=== PATIENT | male | born 1965 | race Caucasian/White ===

== ENCOUNTER 2020-01-26 09:30 | Outpatient (CLI) | payer OTHER, SELFPAY ==
[2020-01-26 09:47] LABS: Hematocrit 45.9 % (42.0-52.0); Hemoglobin 16.3 g/dL (14.0-18.0); Mean Corpuscular HGB Conc 35.5 g/dl (32-36); Mean Corpuscular Hemoglobin 32.9 pg (26-34); Mean Corpuscular Volume 92.5 fl (80-100); Mean Platelet Volume 9.4 fl (7.4-10.4); Platelet Count Result 260 k/mm3 (150-375); Red Blood Count 4.96 M/mm3 (4.6-6.20); Red Cell Distribution Width 12.5 % (11.5-14.5); White Blood Count 8.1 K/mm3 (4.5-10.0)
[2020-01-26 10:00] LABS: Alanine Aminotransferase 40 U/L (4-50); Albumin Level 4.6 g/dL (3.5-5.1); Alkaline Phosphatase 62 U/L (38-126); Anion Gap 5 mmol/L (8-16); Aspartate Amino Transferase 36 U/L (17-59); Bilirubin,Total 0.9 mg/dL (0.2-1.3); Blood Urea Nitrogen 13 mg/dL (9-20); Calcium 9.1 mg/dL (8.4-10.2); Carbon Dioxide 30 mmol/L (22-30); Chloride 105 mmol/L (98-107); Cholesterol 211 mg/dL (0-200); Estimated Glomerular Filt Rate > 60; Glucose 103 mg/dL (75-110); HDL Direct 41 mg/dL; Potassium 4.4 mmol/L (3.4-5.0); Sodium 140 mmol/L (137-145); Triglycerides 131 mg/dL (<150)
[2020-01-26 10:11] LABS: LDL Cholesterol Direct 139 mg/dL
[2020-01-26 10:45] LABS: Prostate Specific Antigen 0.9 ng/mL (< OR = 4.0)
== END 2020-01-26 09:31 | disposition home or self-care (01) ==
PROVIDERS: PCP Family Medicine; Visit Provider Family Medicine
DX: M10.9 Gout, unspecified (principal); E78.00 Pure hypercholesterolemia, unspecified; Z12.5 Encounter for screening for malignant neoplasm of prostate
CPT/HCPCS: 36415; 80053; 80061; 84153; 84443; 85027; G0103

== ENCOUNTER 2020-03-26 07:34 | Outpatient (CLI) | payer OTHER, SELFPAY ==
--- NOTE | 2020-05-14 15:35 | WPDHOMESLEEP ---
Sleep Study - Home Unattended Date of Study: 03/26/20 Ordering Provider: Homero Martinez MD Interpreting Physician: Yuni Sheth MD Home Sleep Study Type: Apnea Link Air Height: 1.78 m Weight: 87.09 kg Body Mass Index: 27.5 Neck Circumference (inches): 17 [place]: 7 Reason for Sleep Study Hypersomnia Sleep History Papa Garcia is a 54-year-old man who snores loudly at night and gasps for air. This started over 5 years ago. He wakes up during the night several times. His snoring often causes others to complain. He rarely awakens at night with heartburn, belching or coughing. He does not awaken from sleep feeling short of breath. He occasionally has trouble sleep with a cold. He he frequently has breathing problems at night observed by others. He rarely sweats excessively at night. He never notices his heart pounding or beating irregularly at night. He never falls asleep during the day, involuntarily or while driving the car. He does not fall asleep during physical effort. He does not have loss of muscle tone with strong emotion. He does not have daytime difficulties due to excessive sleepiness. He does not feel paralyzed on waking or falling asleep. He occasionally has vivid dreamlike scenes upon awakening or falling asleep. He is never afraid to go to sleep. He occasionally has nightmares. He rarely remembers his dreams. He frequently has racing thoughts. He rarely feels sad depressed or anxious. He occasionally has muscular tension. He frequently notices parts of his body jerking and he frequently kicks at night. He occasionally has crawling and aching feelings in his legs at night. He rarely has any leg pain during the night. He does not have morning jaw pain. He does not grind his teeth during sleep. He rarely is bothered by pain during the day. He is not awakened by pain at night. He occasionally wakes up feeling stiff in the morning, rarely with sore or achy muscles. He does not wake up with pain in the neck and spine. He has headaches and fatigue. Normal bedtime is 10:30 p.m. falling asleep within 15-30 minutes, typically waking 2-3 times at night. He is able to return to sleep within 5-10 minutes. He wakes in the morning at 5:30 a.m.. On weekends, he stays awake until midnight, wakes at 8 in the morning. He does not take naps. A short nap is not refreshing. He has our tired in the morning for 1 hour longer. He feels better in the morning compared other times of day. Habits: Never smoked tobacco. Caffeine 4 servings a day. Alcohol 2 servings when consumed, does not use daily. [facility] Past Medical History Medical History (Updated 05/14/20 @ 15:53 by Yuni Sheth MD) Gout Surgical History Surgical History H/O arthroscopic knee surgery History of rotator cuff surgery Family History Family History Mother Gout Social History Social History Social History: Smoking status: Never smoker Second hand tobacco smoke exposure: No Alcohol intake: current Drinks per week: 5 Substance use: never Substance use type: does not use Gender identity (if verbalized by the patient): Male Medications Home Medications Medication Instructions Recorded Confirmed Type allopurinol 300 mg tablet 300 mg PO DAILY #90 tablet 04/08/20 Rx diclofenac sodium 75 mg 75 mg PO BID #180 tablet 04/08/20 Rx tablet,delayed release Sleep Procedure This test was performed using 4 channel monitoring including respiratory effort channel, snoring channel, heart rate channel, and oxygen saturation channel. This study was scored using CMS guidelines. Sleep Architecture Not applicable for home sleep test. Respiratory Analysis The recording time was 10 hours 35 minutes. The duration of the evaluation was 7 hours 9 minut
[2020-05-14 15:55] VITALS: BMI 27.5
== END 2020-03-26 07:35 | disposition home or self-care (01) ==
LOC: ANHCSM 07:35
PROVIDERS: PCP Family Medicine; Visit Provider Family Medicine
DX: G47.33 Obstructive sleep apnea (adult) (pediatric) (principal)
CPT/HCPCS: 95806

== ENCOUNTER 2021-01-17 08:20 | Outpatient (CLI) | payer OTHER, SELFPAY ==
[2021-01-17 08:38] LABS: Basophils Absolute Auto 0.1 K/mm3 (0.0-0.1); Basophils Percent Auto 1.1 % (0.2-1.2); Eosinophils Absolute Auto 0.3 K/mm3 (0-0.3); Eosinophils Percent Auto 3.2 % (0-4.4); Hematocrit 45.1 % (42.0-52.0); Hemoglobin 15.8 g/dL (14.0-18.0); Immature Granulocyte Absolute 0.03 K/mm3 (0.00-0.031); Immature Granulocyte Percent A 0.3 % (0-0.5); Lymphocytes Absolute Auto 2.52 K/mm3 (0.9-3.2); Lymphocytes Percent Auto 25.7 % (18.3-44.2); Mean Corpuscular Hemoglobin 32.8 pg (26-34); Mean Corpuscular Volume 93.8 fl (80-100); Mean Platelet Volume 9.4 fl (7.4-10.4); Monocytes Absolute Auto 0.9 K/mm3 (0.1-0.6); Monocytes Percent Auto 8.8 % (2.6-8.5); Neutrophils Percent Auto 60.9 % (45.5-73.1); Platelet Count Result 258 k/mm3 (150-375); Red Blood Count 4.81 M/mm3 (4.6-6.20); Red Cell Distribution Width 12.5 % (11.5-14.5); White Blood Count 9.8 K/mm3 (4.5-10.0)
[2021-01-17 08:52] LABS: Alanine Aminotransferase 52 U/L (4-50); Alkaline Phosphatase 52 U/L (38-126); Anion Gap 8 mmol/L (8-16); Aspartate Amino Transferase 41 U/L (17-59); Bilirubin,Total 0.8 mg/dL (0.2-1.3); Blood Urea Nitrogen 20 mg/dL (9-20); Calcium 9.7 mg/dL (8.4-10.2); Carbon Dioxide 29 mmol/L (22-30); Chloride 103 mmol/L (98-107); Cholesterol 240 mg/dL (0-200); Estimated Glomerular Filt Rate > 60; Glucose 104 mg/dL (65-110); HDL Direct 44 mg/dL; Potassium 4.4 mmol/L (3.4-5.0); Sodium 140 mmol/L (137-145); Triglycerides 131 mg/dL (<150); Uric Acid 5.5 mg/dL (3.5-8.5)
[2021-01-17 09:03] LABS: LDL Cholesterol Direct 152 mg/dL
== END 2021-01-17 08:21 | disposition home or self-care (01) ==
PROVIDERS: PCP Family Medicine; Visit Provider Family Medicine
DX: E79.0 Hyperuricemia without signs of inflammatory arthritis and tophaceous disease (principal); I10 Essential (primary) hypertension; E78.2 Mixed hyperlipidemia
CPT/HCPCS: 36415; 80053; 80061; 84550; 85025

== ENCOUNTER 2021-01-26 00:38 | Day surgery (SDC) | payer OTHER, SELFPAY ==
[2021-01-15 10:13] VITALS: BMI 27.3
--- NOTE | 2021-01-23 15:15 | PM.HPGS ---
History of Present Illness History of Present Illness Consent: Risks, benefits, and alternatives have been discussed and questions answered. Patient agrees to proceed with procedure. Chief complaint: neoplasm screening Narrative: Papa Abdul is a 55 year old male Referred for colon cancer screening Review of Systems Review of Systems: All systems reviewed & are unremarkable except as noted in HPI and below PMFSH Past Medical History Medical History Achilles tendinitis R Benign essential HTN Gout Obstructive sleep apnea Surgical History Surgical History H/O arthroscopic knee surgery History of rotator cuff surgery Family History Family History Mother Gout Social History Social History Social History: Smoking status: Never smoker Second hand tobacco smoke exposure: No Alcohol intake: current Drinks per week: 4 Substance use: never Substance use type: does not use Living arrangements: with family Gender identity (if verbalized by the patient): Male Sexual Orientation (if Verbalized by the Patient): Straight or Heterosexual Spiritual care concerns: No Meds Home Medications and Allergies Home Medications Medication Instructions Recorded Confirmed Type allopurinol 300 mg tablet 300 mg PO DAILY #90 tablet 09/04/20 01/15/21 Rx lisinopril 10 1 tablet PO DAILY #90 tablet 09/04/20 01/15/21 Rx mg-hydrochlorothiazide 12.5 mg tablet Allergies Allergy/AdvReac Type Severity Reaction Status Date / Time Penicillins Allergy Mild throat Verified 01/26/21 07:41 swelling Exam Resp: Auscultation: clear to auscultation bilaterally Cardio: Rate: regular rate Rhythm: regular rhythm GI: GI Palp: Yes Soft to palpation and No Tenderness to palpation present (GI) Assessment and Plan Assessment and plan (1) Colon cancer screening: Code(s): Z12.11 - Encounter for screening for malignant neoplasm of colon Status: Acute Assessment and Plan: Colonoscopy with possible biopsy or polypectomy or cautery or injection of substances.
--- NOTE | 2021-01-23 18:22 | WPDANESEPPF ---
Anes - Initial Pre Proc Eval Procedure: Operation Date: 01/26/21 08:30 Proposed Procedures p Screening Colonoscopy - Be Villa MD Date/Time: 01/23/21 18:22 Surgeon: Be Villa MD Pre Op Diagnosis: neoplasm screening Patient Data Age: 55 Gender: M Height: 1.78 m Weight: 86.4 kg Allergies Allergy/AdvReac Type Severity Reaction Status Date / Time Penicillins Allergy Mild throat Verified 01/26/21 07:41 swelling Home Medications Medication Instructions Recorded Confirmed Type allopurinol 300 mg tablet 300 mg PO DAILY #90 tablet 09/04/20 01/15/21 Rx lisinopril 10 1 tablet PO DAILY #90 tablet 09/04/20 01/15/21 Rx mg-hydrochlorothiazide 12.5 mg tablet Patient hx anesthesia problems: none Family hx anesthesia problems: none Results Review: All pre-operative results and documents have been reviewed as part of the pre-operative evaluation. PMF Past Medical History Medical History (Updated 01/23/21 @ 18:23 by Ton Houston DO) Achilles tendinitis R Benign essential HTN Gout Obstructive sleep apnea Surgical History Surgical History H/O arthroscopic knee surgery History of rotator cuff surgery Family History Family History Mother Gout Social History Social History (Updated 09/29/20 @ 16:26 by Anita Cornelius CMA) Social History: Smoking status: Never smoker Second hand tobacco smoke exposure: No Alcohol intake: current Drinks per week: 4 Substance use: never Substance use type: does not use Living arrangements: with family Gender identity (if verbalized by the patient): Male Sexual Orientation (if Verbalized by the Patient): Straight or Heterosexual Spiritual care concerns: No Anes - Eval Final PreProcedure Day of Procedure 01/23/21 18:22 Patient weight: overweight Heart: regular rate and rhythm Lungs: clear to auscultation and normal air movement Airway: Mallampati scale class II Neurological: alert and oriented Last oral intake: >/= 8 hours ASA classification: III Emergent: no Anesthetic plan: proceed Anesthesia type and monitoring: general GIVS and standard monitoring Results Review: All pre-operative results and documents have been reviewed as part of the pre-operative evaluation. Informed Consent: The patient's anesthetic plan and its attendant risks and benefits were discussed with the patient/family/POA. Questions were solicited and answers provided to the satisfaction of the patient/family/POA.
[2021-01-26 07:42] VITALS: BP 145/97; PULSE 93; RESP 16; TEMP 37.2; O2SAT 100; BMI 26.7
[2021-01-26] MEDS: LACTATED RINGERS 1,000 ML 150 ML IV CONT (07:59)
[2021-01-26 08:32] VITALS: BP 99/65; PULSE 80; RESP 27; O2SAT 95
[2021-01-26 08:42] VITALS: BP 94/62; PULSE 77; RESP 25; O2SAT 98
[2021-01-26 08:45] VITALS: BP 120/89; PULSE 76; RESP 23; O2SAT 97
== END 2021-01-26 08:52 | disposition home or self-care (01) ==
PROVIDERS: PCP Family Medicine; Visit Provider Internal Medicine Gastroenterology
PROC: 0DJD8ZZ Inspection of Lower Intestinal Tract, Via Natural or Artificial Opening Endoscopic (ICD-10-PCS; CPT 45378; principal; 2021-01-26 08:30)
DX: Z12.11 Encounter for screening for malignant neoplasm of colon (principal); K57.30 Diverticulosis of large intestine without perforation or abscess without bleeding; I10 Essential (primary) hypertension; M10.9 Gout, unspecified; G47.33 Obstructive sleep apnea (adult) (pediatric)
CPT/HCPCS: 45378; J2704; J7120

== ENCOUNTER → 2021-02-02 15:49 | Outpatient (CLI) | payer OTHER, SELFPAY ==
--- NOTE | ~2021-02-02 | XR_ITS ---
XR hip LT min 3V w AP pelvis 02/02/2021 16:21 Indication: Left hip pain Procedure: 3 views left hip Comparison: No prior studies for comparison. Findings: No fracture, subluxation or dislocation. Pelvic rings are intact. Sacral foramen are symmet sharon. No significant soft tissue abnormality. No foreign bodies. Impression: 1: No acute abnormality of the left hip. Reviewed, dictated and finalized at location A. Impression: 1: No acute abnormality of the left hip.
== END ==
PROVIDERS: PCP Family Medicine; Visit Provider Family Medicine
DX: M25.552 Pain in left hip (principal)
CPT/HCPCS: 73502

== ENCOUNTER 2021-10-31 08:49 | Outpatient (CLI) | payer OTHER, SELFPAY ==
[2021-10-31 10:32] LABS: Alanine Aminotransferase 44 U/L (6-50); Albumin Level 4.8 g/dL (3.5-5.1); Alkaline Phosphatase 61 U/L (38-126); Anion Gap 7 mmol/L (8-16); Aspartate Amino Transferase 35 U/L (17-59); Bilirubin,Total 0.9 mg/dL (0.2-1.3); Blood Urea Nitrogen 13 mg/dL (9-20); Carbon Dioxide 27 mmol/L (22-30); Chloride 105 mmol/L (98-107); Cholesterol 236 mg/dL (0-200); Estimated Glomerular Filt Rate > 60; Glucose 96 mg/dL (65-110); HDL Direct 43 mg/dL; Potassium 4.2 mmol/L (3.4-5.0); Sodium 139 mmol/L (137-145); Triglycerides 166 mg/dL (<150)
[2021-10-31 10:43] LABS: LDL Cholesterol Direct 141 mg/dL
== END 2021-10-31 08:50 | disposition home or self-care (01) ==
LOC: ANHLAB 08:51
PROVIDERS: PCP Family Medicine; Visit Provider Family Medicine
DX: E78.2 Mixed hyperlipidemia (principal); I10 Essential (primary) hypertension
CPT/HCPCS: 36415; 80053; 80061

== ENCOUNTER 2022-06-19 08:09 | Outpatient (CLI) | payer OTHER, SELFPAY ==
[2022-06-19 08:40] LABS: Alanine Aminotransferase 42 U/L (6-50); Albumin Level 4.9 g/dL (3.5-5.1); Alkaline Phosphatase 71 U/L (38-126); Anion Gap 5 mmol/L (8-16); Aspartate Amino Transferase 32 U/L (17-59); Blood Urea Nitrogen 17 mg/dL (9-20); Calcium 9.6 mg/dL (8.4-10.2); Carbon Dioxide 30 mmol/L (22-30); Chloride 99 mmol/L (98-107); Cholesterol 228 mg/dL (0-200); Estimated Glomerular Filt Rate > 60; Glucose 108 mg/dL (65-110); HDL Direct 38 mg/dL; Potassium 4.5 mmol/L (3.4-5.0); Sodium 134 mmol/L (137-145); Triglycerides 130 mg/dL (<150); Uric Acid 5.2 mg/dL (3.5-8.5)
[2022-06-19 08:51] LABS: LDL Cholesterol Direct 135 mg/dL
== END 2022-06-19 08:10 | disposition home or self-care (01) ==
PROVIDERS: PCP Family Medicine; Visit Provider Family Medicine
DX: E79.0 Hyperuricemia without signs of inflammatory arthritis and tophaceous disease (principal); I10 Essential (primary) hypertension; E78.2 Mixed hyperlipidemia
CPT/HCPCS: 36415; 80053; 80061; 84550

== ENCOUNTER 2022-08-28 08:00 | Outpatient (CLI) | payer OTHER, SELFPAY ==
[2022-08-28 08:29] LABS: Alanine Aminotransferase 48 U/L (6-50); Aspartate Amino Transferase 56 U/L (17-59)
== END 2022-08-28 08:01 | disposition home or self-care (01) ==
LOC: ANHLAB 08:02
PROVIDERS: PCP Family Medicine; Visit Provider Family Medicine
DX: E78.5 Hyperlipidemia, unspecified (principal)
CPT/HCPCS: 36415; 84450; 84460

== ENCOUNTER 2022-09-29 08:21 | Outpatient (CLI) | payer OTHER, SELFPAY ==
--- NOTE | 2022-09-29 11:00 | NEURO_ITS ---
Impression: Patient reports a history of numbness/paresthesias in both hands. # Moderate, bilateral Carpal Tunnel Syndrome. # Mild, left ulnar neuropathy with mild slowing across the elbow. # Normal needle/EMG. # Clinical correlation recommended. Nerve Conduction Studies Anti Sensory Summary Table Stim Site NR Peak (ms) P-T Amp (?V) Site1 Site2 Delta-P (ms) Dist (cm) Tk (m/s) Left Median Anti Sensory (2-3nd Digit) Wrist 6.4 15.9 Wrist 2-3nd Digit 6.4 14.0 22 Wrist 5.1 8.3 Wrist 2-3nd Digit 6.4 14.0 22 Right Median Anti Sensory (2-3nd Digit) Wrist 8.2 11.6 Wrist 2-3nd Digit 8.2 14.0 17 Wrist 8.4 9.6 Wrist 2-3nd Digit 8.2 14.0 17 Left Radial Anti Sensory (Base 1st Digit) Wrist 2.1 27.0 Wrist Base 1st Digit 2.1 0.0 Right Radial Anti Sensory (Base 1st Digit) Wrist 2.0 34.2 Wrist Base 1st Digit 2.0 0.0 Left Ulnar Anti Sensory (5th Digit) Wrist 3.0 23.0 Wrist 5th Digit 3.0 14.0 47 Right Ulnar Anti Sensory (5th Digit) Wrist 3.0 23.0 Wrist 5th Digit 3.0 14.0 47 Motor Summary Table Stim Site NR Onset (ms) O-P Amp (mV) Site1 Site2 Delta-0 (ms) Dist (cm) Tk (m/s) Left Median Motor (Abd Poll Brev) Wrist 6.3 3.7 Elbow Wrist 4.2 23.0 55 Elbow 10.5 3.8 Right Median Motor (Abd Poll Brev) Wrist 7.5 3.2 Elbow Wrist 4.5 25.0 56 Elbow 12.0 3.6 Left Ulnar Motor (Abd Dig Minimi) Wrist 2.8 5.3 A Elbow Wrist 6.3 31.0 49 A Elbow 9.1 4.4 B Elbow Wrist 3.8 21.0 55 B Elbow 6.6 4.5 Right Ulnar Motor (Abd Dig Minimi) Wrist 2.9 6.3 A Elbow Wrist 5.6 29.0 52 A Elbow 8.5 5.4 B Elbow Wrist 3.3 20.0 61 B Elbow 6.2 5.8 F Wave Studies NR F-Lat (ms) L-R F-Lat (ms) Left Median (Mrkrs) (Abd Poll Brev) 35.49 0.00 Right Median (Mrkrs) (Abd Poll Brev) 35.49 0.00 Left Ulnar (Mrkrs) (Abd Dig Min) 32.64 0.24 Right Ulnar (Mrkrs) (Abd Dig Min) 32.40 0.24 EMG Side Muscle Nerve Root Ins Act Fibs Amp Dur Recrt Comment Right 1stDorInt Ulnar C8-T1 Nml Nml Nml Nml Nml Right Ext Indicis Radial (Post Int) C7-8 Nml Nml Nml Nml Nml Right Ext Digitorum Radial (Post Int) C7-8 Nml Nml Nml Nml Nml Right BrachioRad Radial C5-6 Nml Nml Nml Nml Nml Right PronatorTeres Median C6-7 Nml Nml Nml Nml Nml Right Abd Poll Brev Median C8-T1 Nml Nml Nml Nml Nml Left 1stDorInt Ulnar C8-T1 Nml Nml Nml Nml Nml Left Ext Indicis Radial (Post Int) C7-8 Nml Nml Nml Nml Nml Left Ext Digitorum Radial (Post Int) C7-8 Nml Nml Nml Nml Nml Left BrachioRad Radial C5-6 Nml Nml Nml Nml Nml Left PronatorTeres Median C6-7 Nml Nml Nml Nml Nml Left Abd Poll Brev Median C8-T1 Nml Nml Nml Nml Nml MTDD
== END 2022-09-29 08:22 | disposition home or self-care (01) ==
LOC: ANHNEURO 08:23
PROVIDERS: PCP Family Medicine; Visit Provider Family Medicine
DX: R20.0 Anesthesia of skin (principal); G56.03 Carpal tunnel syndrome, bilateral upper limbs; G56.22 Lesion of ulnar nerve, left upper limb
CPT/HCPCS: 95886; 95911

== ENCOUNTER 2022-10-28 09:59 | Outpatient (CLI) | payer OTHER, SELFPAY ==
[2022-10-28 10:30] LABS: Anion Gap 10 mmol/L (8-16); Blood Urea Nitrogen 15 mg/dL (9-20); Calcium 9.3 mg/dL (8.4-10.2); Carbon Dioxide 27 mmol/L (22-30); Chloride 102 mmol/L (98-107); Estimated Glomerular Filt Rate > 60; Glucose 97 mg/dL (65-110); Potassium 3.9 mmol/L (3.4-5.0); Sodium 139 mmol/L (137-145)
== END 2022-10-28 10:00 | disposition home or self-care (01) ==
LOC: ANHLAB 10:01
PROVIDERS: PCP Family Medicine; Visit Provider Family Medicine
DX: I10 Essential (primary) hypertension (principal)
CPT/HCPCS: 36415; 80048

== ENCOUNTER 2023-03-26 09:27 | Outpatient (CLI) | payer OTHER, SELFPAY ==
[2023-03-26 10:26] LABS: Alanine Aminotransferase 29 U/L (6-50); Albumin Level 4.4 g/dL (3.5-5.1); Alkaline Phosphatase 62 U/L (38-126); Anion Gap 5 mmol/L (8-16); Aspartate Amino Transferase 27 U/L (17-59); Blood Urea Nitrogen 9 mg/dL (9-20); Calcium 9.2 mg/dL (8.4-10.2); Carbon Dioxide 28 mmol/L (22-30); Chloride 106 mmol/L (98-107); Cholesterol 180 mg/dL (0-200); Estimated Glomerular Filt Rate > 60; Glucose 105 mg/dL (65-110); HDL Direct 41 mg/dL; Potassium 4.5 mmol/L (3.4-5.0); Sodium 139 mmol/L (137-145); Triglycerides 98 mg/dL (<150)
[2023-03-26 10:32] LABS: LDL Cholesterol Direct 108 mg/dL
[2023-03-26 10:37] LABS: Bilirubin,Total 0.9 mg/dL (0.2-1.3)
== END 2023-03-26 09:28 | disposition home or self-care (01) ==
LOC: ANHLAB 09:28
PROVIDERS: PCP Family Medicine; Visit Provider Family Medicine
DX: E78.2 Mixed hyperlipidemia (principal); I10 Essential (primary) hypertension
CPT/HCPCS: 36415; 80053; 80061

== ENCOUNTER 2023-08-20 08:16 | Outpatient (CLI) | payer OTHER, SELFPAY ==
[2023-08-20 08:44] LABS: Basophils Absolute Auto 0.1 K/mm3 (0.0-0.1); Eosinophils Absolute Auto 0.3 K/mm3 (0-0.3); Eosinophils Percent Auto 3.3 % (0-4.4); Hematocrit 45.7 % (42.0-52.0); Hemoglobin 15.7 g/dL (14.0-18.0); Immature Granulocyte Absolute 0.02 K/mm3 (0.00-0.031); Immature Granulocyte Percent A 0.2 % (0-0.5); Lymphocytes Absolute Auto 2.07 K/mm3 (0.9-3.2); Lymphocytes Percent Auto 25.2 % (18.3-44.2); Mean Corpuscular HGB Conc 34.4 g/dl (32-36); Mean Corpuscular Hemoglobin 32.4 pg (26-34); Mean Corpuscular Volume 94.2 fl (80-100); Mean Platelet Volume 9.3 fl (7.4-10.4); Monocytes Absolute Auto 0.7 K/mm3 (0.1-0.6); Monocytes Percent Auto 8.6 % (2.6-8.5); Neutrophils Absolute Auto 5.1 K/mm3 (1.3-6.7); Neutrophils Percent Auto 61.7 % (45.5-73.1); Platelet Count Result 265 k/mm3 (150-375); Red Blood Count 4.85 M/mm3 (4.6-6.20); Red Cell Distribution Width 12.6 % (11.5-14.5); White Blood Count 8.2 K/mm3 (4.5-10.0)
[2023-08-20 08:54] LABS: Alanine Aminotransferase 27 U/L (6-50); Albumin Level 4.9 g/dL (3.5-5.1); Alkaline Phosphatase 62 U/L (38-126); Anion Gap 6 mmol/L (4-12); Aspartate Amino Transferase 27 U/L (17-59); Blood Urea Nitrogen 15 mg/dL (9-20); Calcium 9.8 mg/dL (8.4-10.2); Carbon Dioxide 27 mmol/L (22-30); Chloride 106 mmol/L (98-107); Cholesterol 158 mg/dL (0-200); Estimated Glomerular Filt Rate > 60; Glucose 103 mg/dL (65-110); HDL Direct 41 mg/dL; Potassium 4.2 mmol/L (3.4-5.0); Sodium 139 mmol/L (137-145); Triglycerides 125 mg/dL (<150); Uric Acid 5.1 mg/dL (3.5-8.5)
[2023-08-20 09:05] LABS: LDL Cholesterol Direct 93 mg/dL
[2023-08-24 16:08] LABS: PSA, Free 0.3 ng/mL; Percent Free Prostate Spec Ag 30 % (calc) (>25)
== END 2023-08-20 08:17 | disposition home or self-care (01) ==
LOC: ANHLAB 08:17
PROVIDERS: PCP Family Medicine; Visit Provider Family Medicine
DX: E79.0 Hyperuricemia without signs of inflammatory arthritis and tophaceous disease (principal); I10 Essential (primary) hypertension; N40.1 Benign prostatic hyperplasia with lower urinary tract symptoms; E78.2 Mixed hyperlipidemia
CPT/HCPCS: 36415; 80053; 80061; 84153; 84154; 84550; 85025

== ENCOUNTER 2023-10-12 21:06 | Emergency (ER) | payer OTHER, SELFPAY ==
--- NOTE | ~2023-10-12 | XR_ITS ---
XR hip RT min 2V Ordering provider: Tone Ng MD History: . fall . Comparison: None. FINDINGS: BONES: No acute fracture or dislocation. HIP JOINT SPACES: Normal. SACROILIAC JOINT SPACES/LUMBAR SPINE: The sacroiliac joint spaces are normal. Mild degenerative villagomez es of the visualized lower lumbar spine. PUBIC SYMPHYSIS: Normal. SOFT TISSUES: Normal. IMPRESSION: No acute osseous abnormality pelvis and right hip. Reviewed, dictated and finalized at location A.
[2023-10-12 21:09] VITALS: BP 158/96; PULSE 86; RESP 16; TEMP 36.6; O2SAT 98
--- NOTE | 2023-10-12 21:47 | ED.GENADULT ---
HPI - General Adult General Chief complaint: Extremity Injury, Lower Stated complaint: right hip pain after twisting Time Seen by Provider: 10/12/23 21:45 History of Present Illness HPI narrative: Patient is a 58-year-old male who presents to the emergency department this evening complaining of right hip pain. Patient states that he lost his balance and was trying to catch himself and ended up placing a lot a weight on his right hip. Patient felt as though his right help almost popped out of place. Patient has been ambulating since then with mild pain. Denies any numbness or tingling down his right lower extremity and denies any falls on his right hip. Denies any additional symptoms or concerns at this time. Related Data Allergies Allergy/AdvReac Type Severity Reaction Status Date / Time Penicillins Allergy Mild throat Verified 10/12/23 21:08 swelling Review of Systems Review of Systems: All systems are reviewed and are negative unless stated otherwise in the HPI. [facility] Past Medical History Medical History Achilles tendinitis R Benign essential HTN Bilateral hand numbness (~04/2022) Carpal tunnel syndrome on both sides Colon cancer screening Establishing care with new doctor, encounter for Gout Normal colonoscopy 2020- diverticulosis- repeat in 10 years Obstructive sleep apnea ASHISH on CPAP Surgical History Surgical History H/O arthroscopic knee surgery History of rotator cuff surgery Family History Family History Mother Gout Social History Social History Social History: Smoking status: Never smoker Second hand tobacco smoke exposure: No Alcohol intake: current Drinks per week: 4 Substance use: never Substance use type: does not use Do You Feel Safe in your Home?: Yes Lack of Transportation: No Lack of Food: Never True Current Housing: I Have Housing Concerned About Future Housing: No Difficulty Paying Gas/Electric Bills: No Difficulty Paying for Meds: No Currently Unemployed: No Education: Decline to Answer Difficulty w/ Childcare or Family Care: No Living arrangements: with family Occupation/Education: occupation 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 HEENT: PERRL, no rhinorrhea, no post nasal drip, oropharynx clear. Cardiovascular: Regular rate and rhythm, no murmurs, rubs or gallops, no peripheral edema. Respiratory: Clear to auscultation bilaterally, no tachypnea, no wheezing, no rhonchi, no rubs, no respiratory distress. Abdomen: Soft, nontender, nondistended, no rebound, no guarding, no peritoneal signs. Musculoskeletal: Intact right lower extremity hip flexion and knee extension, intact DP and PT per cells, patient is neurovascularly intact, no pain with right hip range of motion. Skin: No rashes or petechia, no signs of infection. Neurological: Alert and oriented to person, place, and time. Follows all commands. No focal deficits, speech is clear and fluent. Course Vital Signs Vital signs: Vital Signs Temperature 98 F 10/12/23 21:09 Pulse Rate 86 10/12/23 21:09 Respiratory Rate 16 10/12/23 21:09 Blood Pressure 158/96 H 10/12/23 21:09 Pulse Oximetry 98 10/12/23 21:09 Oxygen Delivery Room Air 10/12/23 21:09 Temperature 98 F 10/12/23 21:09 Pulse Rate 86 10/12/23 21:09 Respiratory Rate 16 10/12/23 21:09 Blood Pressure 158/96 H 10/12/23 21:09 Pulse Oximetry 98 10/12/23 21:09 Oxygen Delivery Room Air 10/12/23 21:09 Me
[2023-10-12] MEDS: IBUPROFEN 400 MG TABLET PO (21:52)
== END 2023-10-12 21:54 | disposition home or self-care (01) ==
LOC: ANHED 21:52
PROVIDERS: Emergency Provider Emergency Medicine; PCP Family Medicine
DX: M25.551 Pain in right hip (principal); G47.33 Obstructive sleep apnea (adult) (pediatric); I10 Essential (primary) hypertension
CPT/HCPCS: 73502; 99283; A9270

== ENCOUNTER 2024-08-11 09:25 | Outpatient (CLI) | payer OTHER, SELFPAY ==
[2024-08-11 10:41] LABS: Basophils Absolute Auto 0.1 K/mm3 (0.0-0.1); Basophils Percent Auto 0.9 % (0.2-1.2); Eosinophils Absolute Auto 0.2 K/mm3 (0-0.3); Eosinophils Percent Auto 2.5 % (0-4.4); Hematocrit 44.1 % (42.0-52.0); Hemoglobin 15.1 g/dL (14.0-18.0); Immature Granulocyte Absolute 0.02 K/mm3 (0.00-0.031); Immature Granulocyte Percent A 0.3 % (0-0.5); Lymphocytes Absolute Auto 1.81 K/mm3 (0.9-3.2); Lymphocytes Percent Auto 23.8 % (18.3-44.2); Mean Corpuscular HGB Conc 34.2 g/dl (32-36); Mean Corpuscular Hemoglobin 32.5 pg (26-34); Mean Corpuscular Volume 94.8 fl (80-100); Mean Platelet Volume 9.8 fl (7.4-10.4); Monocytes Absolute Auto 0.7 K/mm3 (0.1-0.6); Monocytes Percent Auto 9.1 % (2.6-8.5); Neutrophils Absolute Auto 4.8 K/mm3 (1.3-6.7); Neutrophils Percent Auto 63.4 % (45.5-73.1); Platelet Count Result 241 k/mm3 (150-375); Red Blood Count 4.65 M/mm3 (4.6-6.20); Red Cell Distribution Width 12.9 % (11.5-14.5); White Blood Count 7.6 K/mm3 (4.5-10.0)
[2024-08-11 11:06] LABS: Alanine Aminotransferase 30 U/L (6-50); Albumin Level 4.7 g/dL (3.5-5.1); Alkaline Phosphatase 58 U/L (38-126); Anion Gap 8 mmol/L (4-12); Aspartate Amino Transferase 26 U/L (17-59); Blood Urea Nitrogen 17 mg/dL (9-20); CRP < 0.5 mg/dL (<1.0); Calcium 9.4 mg/dL (8.4-10.2); Carbon Dioxide 27 mmol/L (22-30); Chloride 104 mmol/L (98-107); Cholesterol 194 mg/dL (0-200); Estimated Glomerular Filt Rate > 60; Glucose 96 mg/dL (65-110); HDL Direct 50 mg/dL; Potassium 4.1 mmol/L (3.4-5.0); Sodium 139 mmol/L (137-145); Triglycerides 123 mg/dL (<150)
[2024-08-11 11:14] LABS: LDL Cholesterol Direct 100 mg/dL
[2024-08-11 11:16] LABS: Erythrocyte Sedimentation Rate 12 mm/hr (0-20)
[2024-08-11 11:32] LABS: Prostate Specific Antigen 1.3 ng/mL (< OR = 4.0)
--- OUTSIDE RECORDS SUMMARY | 2024-08-11 16:06 | XMS_ITS | Continuity of Care Document ---
Author Organization [facility] Address [address] [facility] [address] [place] [address] Phone Care Team Providers Care Blood Coordinator Name Role Phone Paulie Sweeney DO Unavailable Unavailable Advance Directives Directive Yes / No Effective Date File Name No Information Encounters Encounter Description Practice Location Reason(s) For Visit Diagnoses Date Provider Providers Copied on Encounter [facility], [address], [place], [place], [id number], [place] tel:[phone] [facility] [place] No Information Patel Mejia. [address] [facility] [place], [place], [address], [place]. tel: [phone] Family History Family Member Type Diagnosis Age At Onset No Information Payers Payer name Insurance type Covered constitution party ID Authoriza tion(s) [employer] [id number] Social History Type Description Quantity Date Captured [...]
--- OUTSIDE RECORDS SUMMARY | 2024-08-11 16:06 | XMS_ITS | Continuity of Care Document ---
Author Organization [facility] Address [address] [facility] [address] [place] [address] Phone Care Team Providers Care Paperback Machine Operator Name Role Phone Hermelindo Narayan MD Unavailable Allergies, Adverse Reactions, Alerts Substance Reaction Status Criticality Penicillins Active No Information Medications Medication Instructions Dosage Effective Dates (start - stop) Status Comments Atlantic 5 mg-325 mg tablet take 1-2 tablet by mouth every 4- 6 hours as needed for pain - Active Flexeril 10 mg tablet take 1 tablet (10M G) by mouth 3 times a day as needed - Active promethazine 25 mg tablet take [...] Providers Copied on Encounter [facility], [address], [place], [address], [place] tel:[phone] [facility] No Information Dec-0 7 Sylvain Casarez. [address], [place], [place], [id number]. tel:[phone] OFFICE/OUTPA TIENT VISIT EST [facility], [address], [place], [address], [place] tel:[phone] [facility] Aftercare following surgery 0- 4 Andrew Salinas. [address], [place], [place], [address]. tel:[phone] OFFICE/OUTPA TIENT VISIT EST [facility], [address], [place], [address], [place] tel:[phone] [facility] Aftercare following surgery 3-201 4 Andrew Salinas. [address], [place], [place], [address]. tel:[phone] OFFICE/OUTPA TIENT VISIT EST [facility], [address], [place], [address], [place] tel:[phone] [facility] Aftercare following surgery 5 4 Andrew Salinas. [address], [place], [place], [address]. tel:[phone] [facility], [address], [place], [address], [place] tel:[phone] [facility] Aftercare following surgery 8 4 Andrew Salinas. [address], [place], [place], [address]. tel:[phone] [facility], [address], [place], [address], [place] tel:[phone] [facility] Aftercare following surgery 4 Andrew Salinas. [address], [place], [place], [id number]. tel:[phone] [facility], [address], [place], [address], [place] tel:[phone] [facility] Aftercare following surgery 4 Andrew Salinas. [address], [place], [place], [address]. tel:[phone] [facility], [address], [place], [address], [place] tel:[phone] [facility] No Information 4 Andrew Salinas. [address], [place], [place], [address]. tel:[phone] OFFICE/OUTPA TIENT VISIT EST [facility], [address] [facility] [address], [place], [address], [place] tel:[phone] [facility] Rotator cuff tear complete traumaticbicep s (long head) tear 4 Andrew Salinas. [address] [facility] [address], [place], [place], [address]. tel:[phone] Referring Provider: Homero Stein, [address] [facility], [place], [address] . tel:[phone] OFFICE/OUTPA TIENT VISIT EST [facility], [address] [facility] [address], [place], [address], [place] tel:[phone] [facility] Old disruption of anterior cruciate ligamentTear of medial cartilage or meniscus of knee, current 0 3 Lino Sky. [address] [facility], [place], [place], [address]. tel:[phone] OFFICE/OUTPA TIENT VISIT EST [facility], [address], [place], [address], [place] tel:[phone] [facility] Old disruption of anterior cruciate ligamentTear of medial cartilage or meniscus of knee, current 3 [place] Jose Daniel. [address] [facility], [place], [place], [address]. tel:[phone] Referring Provider: Homero Stein, [address] [facility], [place], [address] . tel:[phone] [facility], [address], [address], [place] tel:[phone] [facility] Old disruption of anterior cruciate ligamentSprain of cruciate ligament of kneeTear of medial cartilage or meniscus of knee, current 3 Krvero Jose Daniel. [address] [place], [place], [address]. tel:[phone] [facility], [address], [address], [place] tel:[phone] [facility] Old disruption of anterior cruciate ligament 3 Kr[place] Jose Daniel. [address] [place], [place], [address]. tel:[phone] Referring Provider: Homero Stein, [address] [place] [address], [address] . tel:[phone] [facility], [address], [address], [place] tel:[phone] [facility] Sprain of cruciate ligament of kneeTear of medial cartilage or meniscus of knee, current 3 2 Box[address]fer Mary. [address] [facility] [address] [place] [address], [id number]. tel:[phone] Referring Provider: Homero Stein, [address] [place], [address] . tel:[phone] [facility], [address], [address], [place] tel:[phone] [facility] Tear of medial cartilage or meniscus of knee, current 7-201 2 [place] Mary. [address] [facility] [address], [place], [place], [address]. tel:[phone] OFFICE/OUTPA TIENT VISIT EST [facility], [address] [facility] [address], [place], [address], [place] tel:[phone] [facility] Sprain of cruciate ligament of kneeTear of medial cartilage or meniscus of knee, current 2-201 2 Lino Sky. [address] [place], [place], [address]. tel:[phone] Referring Provider: Homero Stein, [address] [facility], [place], [address] . tel:[phone] [facility], [address], [address], [place] tel:[phone] [facility] No Information 8 2 Lino Sky. [address] [facility], [place], [place], [address]. tel:[phone] Family History Family Member Type Diagnosis Age At Onset Problem (finding) Family history of hyper tension Payers Payer name Insurance type Covered libertarian ID Authoriza tion(s) No Information Social History [...] Information Instructions Date Instruction Additional Infor mation Discussed treatment options Rela yao to Aftercare following surgery Home exercise program. Related t o Aftercare following surgery Home exercise program. Related t o Aftercare following surgery Discussed treatment options Rela yao to Aftercare following surgery Activity as tolerated Reviewed medications Activity as tolerated Reviewed medications Reviewed medications Assessments Type Assessment Date No Information Patient Care Teams Name Effective Dates (start - stop) Status Members No Information
[2024-08-13 15:28] LABS: ANA Cascade Screen NEGATIVE (NEGATIVE)
[2024-08-13 15:48] LABS: Anti Cyclic Citrullinated Pept <16 UNITS
== END 2024-08-11 09:26 | disposition home or self-care (01) ==
LOC: ANHLAB 09:26
PROVIDERS: PCP Family Medicine; Visit Provider Student in an Organized Health Care Education/Training Program
DX: M25.541 Pain in joints of right hand (principal); M25.542 Pain in joints of left hand; E78.5 Hyperlipidemia, unspecified; I10 Essential (primary) hypertension; Z12.5 Encounter for screening for malignant neoplasm of prostate
CPT/HCPCS: 36415; 80053; 80061; 83516; 84153; 85025; 85652; 86038; 86140; 86200; 86225; 86235; G0103

== ENCOUNTER 2025-01-05 09:03 | Outpatient (CLI) | payer OTHER, SELFPAY ==
--- NOTE | ~2025-01-05 | XR_ITS ---
EXAMINATION: XR hand LT min 3V, 01/05/2025 9:25 CDT HISTORY: Polyarthropathy inflammatory, Rash , Generalized weakness COMPARISON: No comparisons available. Findings: No acute fracture or malalignment. Moderate degenerative changes of the first metacarpal carpal joint, no erosions identified Soft tissues unremarkable. Impression: No acute fracture or malalignment. Reviewed, dictated and finalized at location P. Impression: No acute fracture or malalignment.
--- NOTE | ~2025-01-05 | XR_ITS ---
EXAMINATION: XR hand RT min 3V, 01/05/2025 9:25 CDT HISTORY: Polyarthropathy inflammatory, Rash , Generalized weakness COMPARISON: No comparisons available. Findings: No acute fracture or malalignment. No significant degenerative changes. Soft tissues unremarkable. Impression: No acute fracture or malalignment. Reviewed, dictated and finalized at location P. Impression: No acute fracture or malalignment.
== END 2025-01-05 09:04 | disposition home or self-care (01) ==
LOC: ANHIMG 09:06
PROVIDERS: PCP Family Medicine; Visit Provider Nurse Practitioner
DX: M06.4 Inflammatory polyarthropathy (principal); R21 Rash and other nonspecific skin eruption; R53.1 Weakness
CPT/HCPCS: 73130

== ENCOUNTER 2025-01-24 13:55 | Emergency (ER) | payer OTHER, SELFPAY ==
--- OUTSIDE RECORDS SUMMARY | 2001-10-10 11:00 | XMS_ITS | Continuity of Care Document ---
Author Organization [facility] Address [address] [facility] [address] [place] [address] Phone Care Team Providers Care Staffing Operations Manager Name Role Phone Paulie Sweeney DO Unavailable Unavailable Advance Directives Directive Yes / No Effective Date File Name No Information Encounters Encounter Description Practice Location Reason(s) For Visit Diagnoses Date Provider Providers Copied on Encounter [facility], [address], [place], [place], [address], [place] tel:[phone] [facility] [place] No Information Patel Mejia. [address] [facility], [place], [address], [place]. tel: [phone] Family History Family Member Type Diagnosis Age At Onset No Information Payers Payer name Insurance type Covered alliance party ID Authoriza tion(s) [employer] Workers Compensation [id number] Social History Type Description Quantity Date Captured Comments Sex Male Smoking Status No Information Chief Complaint And Reason For Visit No Information Reason For Referral Reason For Referral No Information History Of Present Illness Encounter Date Complaint History Of Prese nt Illness No Information Functional Status Date Functional Assessmen t No Information Instructions Date Instruction Additional Infor mation No Information Assessments Type Assessment Date No Information Patient Care Teams Name Effective Dates (start - stop) Status Members No Information
--- OUTSIDE RECORDS SUMMARY | 2001-10-10 11:00 | XMS_ITS | Continuity of Care Document ---
Author Organization [facility] Address [address] [facility] [place] [address] [place] [address] Phone Care Team Providers Care Intelligence Operations Specialist Name Role Phone Paulie Sweeney DO Unavailable Unavailable Advance Directives Directive Yes / No Effective Date File Name No Information Encounters Encounter Description Practice Location Reason(s) For Visit Diagnoses Date Provider Providers Copied on Encounter [facility], [address], [place], [place], [id number], [place] tel:[phone] [facility] [place] No Information Patel Mejia. [address] [facility], [place], [address], [place]. tel: [phone] Family History Family Member Type Diagnosis Age At Onset No Information Payers Payer name Insurance type Covered republican ID Authoriza tion(s) [employer] Workers Compensation [id number] Social History Type Description Quantity Date Captured [...]
--- OUTSIDE RECORDS SUMMARY | 2017-03-11 13:18 | XMS_ITS | Continuity of Care Document ---
Author Organization [facility] Address [address] [facility] [address] [place] [address] Phone Care Team Providers Care Lunchroom Worker Name Role Phone Hermelindo Narayan MD Unavailable Allergies, Adverse Reactions, Alerts Substance Reaction Status Criticality Penicillins Active No Information Medications Medication Instructions Dosage Effective Dates (start - stop) Status Comments Flexeril 10 mg tablet take 1 tablet (10M G) by mouth 3 times a day as needed - Active [place] 5 mg-325 mg tablet take 1-2 tablet by mouth every 4- 6 hours as needed for pain - Active promethazine 25 mg tablet take 1 tablet 3 times daily as needed for pain - Active Procedures Procedure Date OFFICE/OUTPATIENT VISIT EST OFFICE/OUTPATIENT VISIT EST OFFICE/OUTPATIENT VISIT EST POSTOP FOLLOW-UP VISIT POSTOP FOLLOW-UP VISIT POSTOP FOLLOW-UP VISIT OFFICE/OUTPATIENT VISIT EST MU Reporting OFFICE/OUTPATIENT VISIT EST MU Reporting OFFICE/OUTPATIENT VISIT EST MU Reporting POSTOP FOLLOW-UP VISIT MU Reporting POSTOP FOLLOW-UP VISIT MU Reporting POSTOP FOLLOW-UP VISIT MU Reporting MU Reporting OFFICE/OUTPATIENT VISIT EST MU Reporting Advance Directives Directive Yes / No Effective Date File Name No Information Encounters Encounter Description Practice Location Reason(s) For Visit Diagnoses Date Provider Providers Copied on Encounter [facility], [address], [place], [address], [place] tel:[phone] [facility] No Information Dec-0 7 Sylvain Casarez. [address], [place], [place], [address]. tel:[phone] OFFICE/OUTPA TIENT VISIT EST [facility], [address], [place], [address], [place] tel:[phone] [facility] Aftercare following surgery 0- 4 Andrew Salinas. [address], [place], [place], [address]. tel:[phone] OFFICE/OUTPA TIENT VISIT EST [facility], [address], [place], [address], [place] tel:[phone] [facility] Aftercare following surgery 3-201 4 Andrew Salinas. [address], [place], [place], [address]. tel:[phone] OFFICE/OUTPA TIENT VISIT EST [facility], [address], [place], [address], [place] tel:[phone] [facility] Aftercare following surgery 5 4 Andrew Salinas. [address], [place], [place], [address]. tel:[phone] [facility], [address], [place], [address], [place] tel:[phone] [facility] Aftercare following surgery 8 4 Andrew Salinas. [address], [place], [place], [address]. tel:[phone] [facility], [address], [place], [address], [place] tel:[phone] [facility] Aftercare following surgery 4 Andrew Salinas. [address], [place], [place], [address]. tel:[phone] [facility], [address] [facility], [place], [address], [place] tel:[phone] [facility] Aftercare following surgery 4 Andrew Salinas. [address], [place], [place], [address]. tel:[phone] [facility], [address] [facility], [place], [address], [place] tel:[phone] [facility] No Information 4 Andrew Salinas. [address], [place], [place], [address]. tel:[phone] OFFICE/OUTPA TIENT VISIT EST [facility], [address], [place], [address], [place] tel:[phone] [facility] Rotator cuff tear complete traumaticbicep s (long head) tear 4 Andrew Salinas. [address], [place], [place], [address]. tel:[phone] Referring Provider: Homero Stein, [address] [facility], [place], [address] . tel:[phone] OFFICE/OUTPA TIENT VISIT EST [facility], [address], [place], [address], [place] tel:[phone] [facility] Old disruption of anterior cruciate ligamentTear of medial cartilage or meniscus of knee, current 0 3 Lino Sky. [address] [facility], [place], [place], [address]. tel:[phone] OFFICE/OUTPA TIENT VISIT EST [facility], [address], [place], [address], [place] tel:[phone] [facility] Old disruption of anterior cruciate ligamentTear of medial cartilage or meniscus of knee, current 3 [place] Jose Daniel. [address] [facility], [place], [place], [address]. tel:[phone] Referring Provider: Homero Stein, [address] [facility], [place], [address] . tel:[phone] [facility], [address], [address], [place] tel:[phone] [facility] Old disruption of anterior cruciate ligamentSprain of cruciate ligament of kneeTear of medial cartilage or meniscus of knee, current 3 Krvero Jose Daniel. [address] [place], [place], [address]. tel:[phone] [facility], [address], [address], [place] tel:[phone] [facility] Old disruption of anterior cruciate ligament 3 [place] Jose Daniel. [address] [place], [place], [address]. tel:[phone] Referring Provider: Homero Stein, [address] [place] [address], [address] . tel:[phone] [facility], [address], [address], [place] tel:[phone] [facility] Sprain of cruciate ligament of kneeTear of medial cartilage or meniscus of knee, current 3 2 [place]fer Mary. [address] [facility] [address] [place] [address], [id number]. tel:[phone] Referring Provider: Homero Stein, [address] [place], [address] . tel:[phone] [facility], [address], [address], [place] tel:[phone] [facility] Tear of medial cartilage or meniscus of knee, current 7-201 2 [place] Mary. [address] [facility] [address], [place], [place], [address]. tel:[phone] OFFICE/OUTPA TIENT VISIT EST [facility], [address] [facility] [address], [place], [address], [place] tel:[phone] [facility] Sprain of cruciate ligament of kneeTear of medial cartilage or meniscus of knee, current 2-201 2 Lino Sky. [address] [place], [place], [address]. tel:[phone] Referring Provider: Homero Stein, [address] [facility], [place], [address] . tel:[phone] [facility], [address], [address], [place] tel:[phone] [facility] No Information [address] Lino Sky. [address] [facility], [place], [place], [address]. tel:[phone] Family History Family Member Type Diagnosis Age At Onset Problem (finding) Family history of hyper tension Payers Payer name Insurance type Covered constitution party ID Authoriza tion(s) No Information Social History Type Description Quantity Date Captured Comments Sex Male Smoking Status No Information Chief Complaint And Reason For Visit No Information Reason For Referral Reason For Referral No Information Plan Of Treatment Date Type Action Status Referral Ordered: RADEX KNE /2 VIEWS RT ordered Referral Ordered: RADEX KNE 3 VIEWS RT ordered History Of Present Illness Encounter Date Complaint History Of Prese nt Illness No Information Functional Status Date Functional Assessmen t No Information Instructions Date Instruction Additional Infor mation Home exercise program. Related t o Aftercare following surgery Discussed treatment options Rela yao to Aftercare following surgery Home exercise program. Related t o Aftercare following surgery Discussed treatment options Rela yao to Aftercare following surgery Reviewed medications Activity as tolerated Reviewed medications Activity as tolerated Reviewed medications Assessments Type Assessment Date No Information Patient Care Teams Name Effective Dates (start - stop) Status Members No Information
--- OUTSIDE RECORDS SUMMARY | 2017-03-11 13:18 | XMS_ITS | Continuity of Care Document ---
Author Organization [facility] Address [address] [facility] [address] [place] [address] Phone Care Team Providers Care Hydrochloric Manufacturing Supervisor Name Role Phone Hermelindo Narayan MD Unavailable Allergies, Adverse Reactions, Alerts Substance Reaction Status Criticality Penicillins Active No Information Medications Medication Instructions Dosage Effective Dates (start - stop) Status Comments Flexeril 10 mg tablet take 1 tablet (10M G) by mouth 3 times a day as needed - Active [place] 5 mg-325 mg tablet take 1-2 tablet [...] Providers Copied on Encounter [facility], [address], [place], [address], [place] tel:[phone] [facility] No Information Dec-0 7 Sylvain Casarez. [address], [place], [place], [address]. tel:[phone] OFFICE/OUTPA TIENT VISIT EST [facility], [address], [place], [address], [place] tel:[phone] [facility] Aftercare following surgery 0- 4 Andrew Salinas. [address], [place], [place], [address]. tel:[phone] OFFICE/OUTPA TIENT VISIT EST [facility], [address], [place], [address], [place] tel:[phone] [facility] Aftercare following surgery 3-201 4 Andrew Salinas. [address], [place], [place], [address]. tel:[phone] OFFICE/OUTPA TIENT VISIT EST [facility], [address], [place], [address], [place] tel:[phone] [facility] Aftercare following surgery 5 4 Andrew Salinas. [address], [place], [place], [address]. tel:[phone] [facility], [address], [place], [address], [place] tel:[phone] [facility] Aftercare following surgery 8 4 Andrew Salinas. [address], [place], [place], [address]. tel:[phone] [facility], [address], [place], [address], [place] tel:[phone] [facility] Aftercare following surgery 4 Andrew Salinas. [address], [place], [place], [address]. tel:[phone] [facility], [address], [place], [address], [place] tel:[phone] [facility] Aftercare following surgery 4 Andrew Salinas. [address], [place], [place], [address]. tel:[phone] [facility], [address], [place], [address], [place] tel:[phone] [facility] No Information 4 Andrew Salinas. [address], [place], [place], [address]. tel:[phone] OFFICE/OUTPA TIENT VISIT EST [facility], [address] [facility] [address], [place], [address], [place] tel:[phone] [facility] Rotator cuff tear complete traumaticbicep s (long head) tear 4 Andrew Salinas. [address] [facility] [address], [place], [place], [address]. tel:[phone] Referring Provider: Homero Stein, [address] [facility], [place], [address] . tel:[phone] OFFICE/OUTPA TIENT VISIT EST [facility], [address] [facility] [address], [place], [address], [place] tel:[phone] [facility] Old disruption of anterior cruciate ligamentTear of medial cartilage or meniscus of knee, current 0 3 Lino Sky. [address] [facility], [place], [place], [address]. tel:[phone] OFFICE/OUTPA TIENT VISIT EST [facility], [address], [place], [address], [place] tel:[phone] [facility] Old disruption of anterior cruciate ligamentTear of medial cartilage or meniscus of knee, current 3 [place] Jose Daniel. [address] [facility], [place], [place], [address]. tel:[phone] Referring Provider: Homero Stein, [address] [facility], [place], [address] . tel:[phone] [facility], [address], [address], [place] tel:[phone] [facility] Old disruption of anterior cruciate ligamentSprain of cruciate ligament of kneeTear of medial cartilage or meniscus of knee, current 3 Krvero Jose Daniel. [address] [place], [place], [address]. tel:[phone] [facility], [address], [address], [place] tel:[phone] [facility] Old disruption of anterior cruciate ligament 3 [place] Jose Daniel. [address] [place], [place], [address]. tel:[phone] Referring Provider: Homero Stein, [address] [place] [address], [address] . tel:[phone] [facility], [address], [address], [place] tel:[phone] [facility] Sprain of cruciate ligament of kneeTear of medial cartilage or meniscus of knee, current 3 2 [place] Mary. [address] [facility] [address] [place] [address], [address]. tel:[phone] Referring Provider: Homero Stein, [address] [place], [address] . tel:[phone] [facility], [address], [address], [place] tel:[phone] [facility] Tear of medial cartilage or meniscus of knee, current 7-201 2 [place] Mary. [address] [facility] [address], [place], [place], [address]. tel:[phone] OFFICE/OUTPA TIENT VISIT EST [facility], [address] [facility] [address], [place], [address], [place] tel:[phone] [facility] Sprain of cruciate ligament of kneeTear of medial cartilage or meniscus of knee, current 2-201 2 Lino Sky. [address] [place], [place], [address]. tel:[phone] Referring Provider: Homero Stein, [address] [facility], [place], [address] . tel:[phone] [facility], [address], [address], [place] tel:[phone] [facility] No Information 8[address] Lino Sky. [address] [facility], [place], [place], [address]. tel:[phone] Family History Family Member Type Diagnosis Age [...]
--- NOTE | ~2025-01-24 | CT_ITS ---
COMPARISON none TECHNIQUE Following the noncontrasted kinesiology professor, axial images of the thorax, abdomen and pelvis were obtained following infusion of [100] cc of Isovue 370. Post-processing on an independent workstation was performed to reconstruct MIP images for evaluation of the aortic vasculature. Dose lowering technique and dose optimization was utilized. FINDINGS: CTA CHEST: [There are calcified plaques throughout the aorta.] [The ascending and descending thoracic aorta are normal in caliber and patency. No dissection is evident.] The aortic arch demonstrates normal branching pattern. The origins of the supra aortic vessels are patent. The pulmonary arteries demonstrate normal patency. CTA ABDOMEN AND PELVIS: [There are calcified plaques in the infrarenal abdominal aorta extending into the iliac arteries. The abdominal aorta, visceral vessels and renal arteries demonstrate no hemodynamically significant stenosis. No aneurysm is identified.] [The iliac and visualized femoral vessels are widely patent. No aneurysm or hemodynamically significant stenosis is noted. ] NONVASCULAR FINDINGS: [Mild dependent atelectasis are noted. No focal consolidation, pleural effusions or pneumothorax. [No pathologically enlarged mediastinal adenopathy is evident.] There is fatty infiltration of the liver. [No intrahepatic mass or ductal dilatation is evident.] [The gallbladder is unremarkable.] [The pancreas and spleen are normal in appearance.] [The adrenal glands are symmetric in size.] [The kidneys are unremarkable.] [ No intrarenal stones are noted.] [ There is no hydronephrosis.] [ ] [The stomach and bowel loops are unremarkable.] [The bladder and rectum are normal in appearance.] [ ] [ No free fluid or air is evident.] [There is no abdominal or pelvic lymphadenopathy.] [The thoracic and lumbar spines are unremarkable.] [The [No osseous lesion is identified.] IMPRESSION: 1. [No thoracic or abdominal aortic aneurysm is evident. There is no dissection.] 2. [No acute abnormality is noted in the chest, abdomen and pelvis.] Reviewed, dictated and finalized at location S. IMPRESSION: 1. [No thoracic or abdominal aortic aneurysm is evident. There is no dissecti on.] 2. [No acute abnormality is noted in the chest, abdomen and pelvis.]
--- NOTE | 2025-01-24 13:57 | ECG_ITS ---
Test Date: 2025-01-24 14:42:42 Measurements Intervals [place] Rate: 101 P: 44 IA: 179 QRS: 39 QRSD: 81 T: 29 QT: 318 QTc: 413 Interpretive Statements SINUS TACHYCARDIA CONSIDER INFERIOR INFARCT, AGE INDETERMINATE BASELINE ARTIFACT- I, III, AVL ABNORMAL ECG No previous ECG available for comparison Electronically Signed On 01-24-2025 15:15:59 CDT by Claus Lam D.O.
[2025-01-24 14:32] VITALS: BP 129/93; PULSE 106; RESP 18; TEMP 37; O2SAT 99
--- NOTE | 2025-01-24 15:43 | ED_ITS ---
HPI - Back Pain/Injury General Chief Complaint: Back Pain/Injury <Tiffany Chinchilla PA-C - Last Filed: 01/25/25 17:13> Stated Complaint: BACK PAIN,FEELS HOT, WANTS EKG <Tiffany Chinchilla PA-C - Last Filed: 01/25/25 17:13> Time Seen by Provider: 01/24/25 15:43 <Tiffany Chinchilla PA-C - Last Filed: 01/25/25 17:13> Focused HPI: This is a 59 year old male that presents to the ER for left sided upper back pain. Reports associated lightheadedness, nausea. Reports worsening pain throughout the day. He takes Celebrex for arthritis, otherwise has not taken any pain medication. Denies chest pain, shortness of breath. GENERAL: Well-appearing, well-nourished, and in no acute distress. HEAD: Normocephalic, atraumatic. CHEST: Clear to auscultation. ?No respiratory distress. HEART: Regular rate and rhythm.? NEURO: ?Alert and oriented x3. Patient screened in triage and initial orders placed.? ?Additional care and disposition to be based upon?diagnostic testing and treatment. <Tiffany Chinchilla PA-C - Last Filed: 01/25/25 17:13> Focused HPI: This is a 59 year old male that presents to the ER for left sided upper back pain. Reports associated lightheadedness, nausea. Reports worsening pain throughout the day. He takes Celebrex for arthritis, otherwise has not taken any pain medication. Denies chest pain, shortness of breath. GENERAL: Well-appearing, well-nourished, and in no acute distress. HEAD: Normocephalic, atraumatic. CHEST: Clear to auscultation. ?No respiratory distress. HEART: Regular rate and rhythm.? NEURO: ?Alert and oriented x3. Patient screened in triage and initial orders placed.? ?Additional care and disposition to be based upon?diagnostic testing and treatment. <Kiana Sifuentes PA-C - Last Filed: 01/24/25 23:37> Source: patient <MARILOU Stewart Last Filed: 01/24/25 23:37> Mode of arrival: ambulatory <Kiana Sifuentes PA-C - Last Filed: 01/24/25 23:37> Limitations: no limitations <Kiana Sifuentes PA-C - Last Filed: 01/24/25 23:37> History of Present Illness HPI Narrative: Agree with above HPI. Reported having a dull pain throughout his left scapular region yesterday. Pain worse throughout the day today. Denies previous history of heart issues. <Kiana Sifuentes PA-C - Last Filed: 01/24/25 23:37> Related Data Allergies/Adverse Reactions: Allergies Allergy/AdvReac Type Severity Reaction Status Date / Time Penicillins Allergy Mild throat Verified 01/24/25 13:56 swelling <Tiffany Chinchilla PA-C - Last Filed: 01/25/25 17:13> Review of Systems 2 Review of Systems: All systems reviewed & are unremarkable except as noted in HPI. <Kiana Sifuentes PA-C - Last Filed: 01/24/25 23:37> All systems reviewed & are unremarkable except as noted in HPI and below < Kiana Sifuentes PA-C - Last Filed: 01/24/25 23:37> [facility] Past Medical History Medical History: Medical History Carpal tunnel syndrome on both sides ASHISH on CPAP Bilateral hand numbness (~04/2022) Normal colonoscopy 2020- diverticulosis- repeat in 10 years Achilles tendinitis R Benign essential HTN Colon cancer screening Obstructive sleep apnea Establishing care with new doctor, encounter for Gout <Tiffany Chinchilla PA-C - Last Filed: 01/25/25 17:13> Surgical History Surgical History: Surgical History History of rotator cuff surgery H/O arthroscopic knee surgery <Tiffany Chinchilla PA-C - Last Filed: 01/25/25 17:13> Family History Family History: Family History Mother Gout Father Rheumatoid arthritis <Tiffany Chinchilla PA-C - Last Filed: 01/25/25 17:13> Social History Social History: Social History Social History: Smoking status: Never smoker Second hand tobacco smoke exposure: No Alcohol intake: current Drinks per week: 4 Substance use: never Substance use type: does not use Do You Feel Safe in your Home?: Yes Lack of Transportation: No Lack of Food: Never True Current Housing: I Have Housing Concerned About Future Housing: No Difficulty Paying Gas/Electric Bills: No Difficulty Paying for Meds: No Currently Unemployed: No Education: Decline to Answer Difficulty w/ Childcare or Family Care: No Living arrangements: with family Occupation/Education: occupation 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 HEAD: Normocephalic, atraumatic. RESPIRATORY: Airway patent, respirations nonlabored. Clear to auscultation bilaterally, no rales, rhonchi, wheezing. CARDIOVASCULAR: Regular rate and rhythm without murmurs, rubs, or gallops. ABDOMINAL: Soft, minimal tenderness throughout epigastric and right upper abdomen, nondistended. Normoactive BS. MUSCULOSKELETAL: Moves all extremities. No gross deformities. Mild reproducible tenderness along left medial scapular region. No significant midline thoracic spine. SKIN: Warm, dry, normal color. NEURO: A&O X3. Speech clear. Cranial nerves II-XII grossly intact. Steady gait. No ataxic movements. PSYCHIATRIC: Appropriate mood and affect. Normal interaction. <Kiana Sifuentes PA-C - Last Filed: 01/24/25 23:37> Course Vital Signs Vital signs: Vital Signs Temperature 98.6 F 01/24/25 14:32 Pulse Rate 106 H 01/24/25 14:32 Respiratory Rate 18 01/24/25 14:32 Blood Pressure 129/93 H 01/24/25 14:32 Pulse Oximetry 99 01/24/25 14:32 Oxygen Delivery Room Air 01/24/25 14:32 Temperature 98.6 F 01/24/25 14:32 Pulse Rate 82 01/24/25 19:04 Respiratory Rate 17 01/24/25 19:04 Blood Pressure 136/85 01/24/25 19:04 Pulse Oximetry 97 01/24/25 19:04 Oxygen Delivery Room Air 01/24/25 14:32 <Tiffany Chinchilla PA-C - Last Filed: 01/25/25 17:13> Vital Signs Temperature 98.6 F 01/24/25 14:32 Pulse Rate 106 H 01/24/25 14:32 Respiratory Rate 18 01/24/25 14:32 Blood Pressure 129/93 H 01/24/25 14:32 Pulse Oximetry 99 01/24/25 14:32 Oxygen Delivery Room Air 01/24/25 14:32 Temperature 98.6 F 01/24/25 14:32 Pulse Rate 82 01/24/25 19:04 Respiratory Rate 17 01/24/25 19:04 Blood Pressure 136/85 01/24/25 19:04 Pulse Oximetry 97 01/24/25 19:04 Oxygen Delivery Room Air 01/24/25 14:32 <Kiana Sifuentes PA-C - Last Filed: 01/24/25 23:37> MDM - Back Pain/Injury MDM Narrative Medical decision making narrative: Patient presented to ED with left upper back pain ongoing since yesterday, but worse today. Also reporting nausea, lightheadedness. Patient concerned for cardiac etiology. No previous hx of heart disease. Denying CP or SOB. Patient is slightly tachycardic upon arrival. This was improved by the time of my evaluation without intervention. EKG with sinus rhythm, no significant concerning ST changes. Baseline troponin undetectable. Low suspicion for ACS Remainder basic laboratory studies with mild leukocytosis of 13.1. Patient denying significant infectious symptoms at this time. Very slight elevation of total bilirubin to 1.5. Otherwise normal LFTs. No significant RUQ tenderness. Stable coags. CTA of head chest/abdomen/pelvis was obtained-unremarkable. No aneurysm or dissection. No other acute abnormalities within the chest, abdomen, pelvis. D- dimer WNL, no report of SOB/pleuritic pain, low suspicion for PE. Discussed lab and imaging findings with patient, overall reassuring workup. Suspicious for musculoskeletal etiology at this time given otherwise reassuring workup. Pain is very positional, worse with movements. Will discharge with muscle relaxers, lidocaine patches for home use. Patient advised to have close follow-up with PCP for further evaluation. Given strict return precautions should symptoms worsen or continue. He is in agreement with plan. Feels comfortable going home. Discharged in stable condition. <Kiana Sifuentes PA-C - Last Filed: 01/24/25 23:37> Medical Records Attestation: I reviewed the patient's medical records. <Kiana Sifuentes PA-C - Last Filed: 01/24/25 23:37> Lab Data Attestation: I reviewed the patient's lab results. <Kiana Sifuentes PA-C - Last Filed: 01/24/25 23:37> Result diagrams: 01/24/25 17:35 01/24/25 17:35 <Tiffany Chinchilla PA-C - Last Filed: 01/25/25 17:13> Labs: Lab Results 01/24/25 Range/Units 17:35 WBC 13.1 H (4.5-10.0) K/mm3 RBC 4.90 (4.6-6.20) M/mm3 Hgb 16.1 (14.0-18.0) g/dL Hct 45.7 (42.0-52.0) % MCV 93.3 (80-100) fl MCH 32.9 (26-34) pg MCHC 35.2 (32-36) g/dl RDW 12.9 (11.5-14.5) % Plt Count 280 (150-375) k/mm3 MPV 9.3 (7.4-10.4) fl Immature Gran % (Auto) 0.4 (0-0.5) % Neut % (Auto) 73.9 H (45.5-73.1) % Lymph % (Auto) 17.2 L (18.3-44.2) % [place] % (Auto) 6.6 (2.6-8.5) % Eos % (Auto) 1.2 (0-4.4) % Baso % (Auto) 0.7 (0.2-1.2) % Lymph # (Auto) 2.25 (0.9-3.2) K/mm3 [place] # (Auto) 0.9 H (0.1-0.6) K/mm3 Eos # (Auto) 0.2 (0-0.3) K/mm3 Baso # (Auto) 0.1 (0.0-0.1) K/mm3 Abs Immat Gran (auto) 0.05 H (0.00-0.031) K/mm3 Absolute Neuts (auto) 9.7 H (1.3-6.7) K/mm3 Absolute Nucleated RBC 0.000 (0.0-0.012) K/mm3 Nucleated RBC % 0.0 (0.0-0.2) % PT 13.5 (11.1-14.7) Seconds INR 1.0 APTT 24.3 (22.3-36.8) Seconds D-Dimer < 0.27 (<0.48) ug/mL Sodium 137 (137-145) mmol/L Potassium 4.3 (3.4-5.0) mmol/L Chloride 100 (98-107) mmol/L Carbon Dioxide 25 (22-30) mmol/L Anion Gap 12 (4-12) mmol/L BUN 11 D (9-20) mg/dL Creatinine 0.82 (0.7-1.3) mg/dL Estim Creat Clear Calc 90 ml/min Estimated GFR > 60 (59 - ) Glucose 94 (65-110) mg/dL Calcium 9.8 (8.4-10.2) mg/dL Total Bilirubin 1.5 H (0.2-1.3) mg/dL AST 36 (17-59) U/L ALT 36 (6-50) U/L Alkaline Phosphatase 55 (38-126) U/L Troponin I < 0.012 (0.000-0.034) ng/mL Total Protein 9.2 H (6.3-8.2) g/dL Albumin 5.3 H (3.5-5.1) g/dL <Tiffany Chinchilla PA-C - Last Filed: 01/25/25 17:13> Lab Results 01/24/25 Range/Units 17:35 WBC 13.1 H (4.5-10.0) K/mm3 RBC 4.90 (4.6-6.20) M/mm3 Hgb 16.1 (14.0-18.0) g/dL Hct 45.7 (42.0-52.0) % MCV 93.3 (80-100) fl MCH 32.9 (26-34) pg MCHC 35.2 (32-36) g/dl RDW 12.9 (11.5-14.5) % Plt Count 280 (150-375) k/mm3 MPV 9.3 (7.4-10.4) fl Immature Gran % (Auto) 0.4 (0-0.5) % Neut % (Auto) 73.9 H (45.5-73.1) % Lymph % (Auto) 17.2 L (18.3-44.2) % [place] % (Auto) 6.6 (2.6-8.5) % Eos % (Auto) 1.2 (0-4.4) % Baso % (Auto) 0.7 (0.2-1.2) % Lymph # (Auto) 2.25 (0.9-3.2) K/mm3 [place] # (Auto) 0.9 H (0.1-0.6) K/mm3 Eos # (Auto) 0.2 (0-0.3) K/mm3 Baso # (Auto) 0.1 (0.0-0.1) K/mm3 Abs Immat Gran (auto) 0.05 H (0.00-0.031) K/mm3 Absolute Neuts (auto) 9.7 H (1.3-6.7) K/mm3 Absolute Nucleated RBC 0.000 (0.0-0.012) K/mm3 Nucleated RBC % 0.0 (0.0-0.2) % PT 13.5 (11.1-14.7) Seconds INR 1.0 APTT 24.3 (22.3-36.8) Seconds D-Dimer < 0.27 (<0.48) ug/mL Sodium 137 (137-145) mmol/L Potassium 4.3 (3.4-5.0) mmol/L Chloride 100 (98-107) mmol/L Carbon Dioxide 25 (22-30) mmol/L Anion Gap 12 (4-12) mmol/L BUN 11 D (9-20) mg/dL Creatinine 0.82 (0.7-1.3) mg/dL Estim Creat Clear Calc 90 ml/min Estimated GFR > 60 (59 - ) Glucose 94 (65-110) mg/dL Calcium 9.8 (8.4-10.2) mg/dL Total Bilirubin 1.5 H (0.2-1.3) mg/dL AST 36 (17-59) U/L ALT 36 (6-50) U/L Alkaline Phosphatase 55 (38-126) U/L Troponin I < 0.012 (0.000-0.034) ng/mL Total Protein 9.2 H (6.3-8.2) g/dL Albumin 5.3 H (3.5-5.1) g/dL <MARILOU Stewart Last Filed: 01/24/25 23:37> Imaging Data Attestation: I personally reviewed and interpreted this imaging study as follows: < MARILOU Stewart Last Filed: 01/24/25 23:37> Radiologist's impression: ITS Impressions Chest/Abdomen/Pelvis CTA 01/24/25 19:32 IMPRESSION: 1. [No thoracic or abdominal aortic aneurysm is evident. There is no dissection.] 2. [No acute abnormality is noted in the chest, abdomen and pelvis.] <MARILOU Stewart Last Filed: 01/24/25 23:37> ECG Data EKG #1: Attestation: I personally reviewed and interpreted this ECG as follows: <MARILOU Stewart Last Filed: 01/24/25 23:37> ECG completion date: 01/24/25 <MARILOU Stewart Last Filed: 01/24/25 23:37> ECG completion time: 14:42 <MARILOU Stewart Last Filed: 01/24/25 23:37> EKG Interpretation: tachycardia (101), sinus rhythm and no ST changes <MARILOU Stewart Last Filed: 01/24/25 23:37> Discharge Plan Discharge Clinical Impression: Upper back pain on left side <MARILOU Morales Last Filed: 01/25/25 17:13> Patient Disposition: Home <MARILOU Morales Last Filed: 01/25/25 17:13> Condition: Stable <MARILOU Morales Last Filed: 01/25/25 17:13> Instructions: Antibiotic Form, Musculoskeletal Pain (ED), Thoracic Back Strain (ED) <MARILOU Morales Last Filed: 01/25/25 17:13> Additional Instructions: Your workup here was reassuring against a cardiac cause of your chest pain. Continue Tylenol and Ibuprofen as needed for pain. You may use ice/heat, lidocaine patches to area of pain. Take muscle relaxers as needed and prescribed. Recommend taking these at night as they may cause sedation. Do not drive, operate heavy machinery, drink alcohol while on muscle relaxers as this may cause further sedation. Follow-up with your primary care doctor for further evaluation. Return to the ED if you experience worsening or severe pain, chest pain, shortness of breath, numbness or weakness of arms, severe abdominal pain, unable to keep down food or drink, or any other symptoms of concern. <MARILOU Morales Last Filed: 01/25/25 17:13> Patient Language: Yi <MARILOU Morales Last Filed: 01/25/25 17:13> Prescriptions: New lidocaine 5 % adhesive patch,medicated 1 patch topical DAILY Qty: 15 0RF Rx Instructions: leave on most painful area for up to 12 hrs cyclobenzaprine 5 mg tablet 5 mg PO TID PRN (Reason: muscle spasm) Qty: 15 0RF No Action allopurinol 300 mg tablet 300 mg PO DAILY Qty: 90 1RF amlodipine 5 mg tablet 5 mg PO DAILY Qty: 90 1RF irbesartan-hydrochlorothiazide 300-12.5 mg tablet 1 tablet PO DAILY Qty: 90 2RF rosuvastatin 10 mg tablet 10 mg PO DAILY Qty: 90 1RF <MARILOU Morales Last Filed: 01/25/25 17:13> Follow-up/Referrals: Wilbert Blood MD [Primary Care Provider, Family Practice] <MARILOU Morales Last Filed: 01/25/25 17:13> Time of Disposition: 21:16 <Tiffany Chinchilla PA-C - Last Filed: 01/25/25 17:13> 21:16 <Kiana Sifuentes PA-C - Last Filed: 01/24/25 23:37>
[2025-01-24] MEDS: LIDOCAINE 5% PATCH 1 PATCH TRANSDERM (17:29)
[2025-01-24] MEDS: ACETAMINOPHEN 500 MG TABLET 1000 MG PO (17:29)
[2025-01-24 17:35] VITALS: BP 126/84; PULSE 92; RESP 17; O2SAT 100
[2025-01-24 17:44] LABS: Hematocrit 45.7 % (42.0-52.0); Hemoglobin 16.1 g/dL (14.0-18.0); Immature Granulocyte Percent A 0.4 % (0-0.5); Lymphocytes Absolute Auto 2.25 K/mm3 (0.9-3.2); Mean Corpuscular HGB Conc 35.2 g/dl (32-36); Mean Corpuscular Hemoglobin 32.9 pg (26-34); Mean Corpuscular Volume 93.3 fl (80-100); Nucleated Red Blood Cells Absolute Auto 0.000 K/mm3 (0.0-0.012); Nucleated Red Blood Cells Perc 0.0 % (0.0-0.2); Platelet Count Result 280 k/mm3 (150-375); Red Blood Count 4.90 M/mm3 (4.6-6.20); White Blood Count 13.1 K/mm3 (4.5-10.0)
[2025-01-24 17:56] VITALS: BP 124/86; PULSE 81; RESP 16; O2SAT 98
[2025-01-24 17:56] LABS: INR 1.0; Partial Thromboplastin Time 24.3 Seconds (22.3-36.8); Prothrombin Time 13.5 Seconds (11.1-14.7)
[2025-01-24 18:01] VITALS: BP 126/87; PULSE 81; RESP 15; O2SAT 96
[2025-01-24 18:36] LABS: Alanine Aminotransferase 36 U/L (6-50); Albumin Level 5.3 g/dL (3.5-5.1); Alkaline Phosphatase 55 U/L (38-126); Anion Gap 12 mmol/L (4-12); Aspartate Amino Transferase 36 U/L (17-59); Bilirubin,Total 1.5 mg/dL (0.2-1.3); Blood Urea Nitrogen 11 mg/dL (9-20); Calcium 9.8 mg/dL (8.4-10.2); Carbon Dioxide 25 mmol/L (22-30); Chloride 100 mmol/L (98-107); Estimated CRCL calculation 90 ml/min; Estimated Glomerular Filt Rate > 60; Glucose 94 mg/dL (65-110); Potassium 4.3 mmol/L (3.4-5.0); Sodium 137 mmol/L (137-145); Total Protein 9.2 g/dL (6.3-8.2)
[2025-01-24 19:04] VITALS: BP 136/85; PULSE 82; RESP 17; O2SAT 97
[2025-01-24 21:13] LABS: Troponin I < 0.012 ng/mL (0.000-0.034)
[2025-01-24] MEDS: CYCLOBENZAPRINE HCL 10 MG TABLET PO (21:25)
== END 2025-01-24 21:29 | disposition home or self-care (01) ==
PROVIDERS: Physician Assistant; Emergency Provider Physician Assistant; PCP Family Medicine
DX: M54.6 Pain in thoracic spine (principal); I10 Essential (primary) hypertension; M10.9 Gout, unspecified; M19.90 Unspecified osteoarthritis, unspecified site; G47.33 Obstructive sleep apnea (adult) (pediatric)
CPT/HCPCS: 36415; 71275; 74174; 80053; 84484; 85025; 85380; 85610; 85730; 93005; 99284; A9270; Q9967